=== PATIENT | female | born 1955 | race Caucasian/White ===

== ENCOUNTER 2019-03-05 05:54 | Day surgery (SDC) | payer OTHER ==
--- NOTE | 2019-02-25 13:31 | PREOPHP ---
DATE OF ADMISSION: 02/26/2019 HISTORY OF PRESENT ILLNESS: This 63-year-old patient is admitted for elective cataract surgery of the left eye. The patient has had a decreased vision for the past 3 years. 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 SYSTEMIC HISTORY: Positive for stomach disorder, depression and sleep apnea. CURRENT MEDICATIONS: Include: 1. Ambien. 2. Omeprazole. 3. Metoprolol. ALLERGIES: THERE ARE NO KNOWN ALLERGIES. PHYSICAL EXAMINATION: The visual acuity best corrected is 20/60 in the right eye and 20/50 in the left eye. Slit lamp examination reveals anterior cortical and nuclear sclerotic cataracts present in both eyes. There is evidence of a peripheral iridotomy in both eyes. Intraocular tension is 10 mmHg. Examination of the retina is within normal limits. DIAGNOSIS: Anterior cortical and nuclear sclerotic cataract, both eyes. PLAN: Cataract extraction with lens implant, left eye. The risks and alternatives to the surgery have been discussed with the patient and patient has opted to proceed with surgery in hopes of obtaining improved visual acuity leading to greater ability to perform activities of daily living. Dictated By: DAYANARA GUAMAN/MARIO Conf#: [id number] DID#: [id number] MTDD
--- NOTE | 2019-03-04 13:19 | PREOPHP ---
DATE OF ADMISSION: 02/26/2019 HISTORY OF PRESENT ILLNESS: This 63-year-old patient is admitted for elective cataract surgery of th e left eye. 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 SYSTEMIC HISTORY: Positive for systemic hypertension and depression as well as cholelithiasis. CURRENT MEDICATIONS: Include: 1. Fluticasone. 2. Claritin. 3. Ventolin. 4. Aspirin 81 mg (stopped 1 week prior to surgery). 5. Ketoconazole cream. 6. Ambien. 7. Venlafaxine. 8. Omeprazole. ALLERGIES: THERE ARE NO KNOWN ALLERGIES. PHYSICAL EXAMINATION: Visual acuity in both eyes is 20/70. Slit lamp examination reveals anterior c ortical and nuclear sclerotic cataracts present in both eyes. There is a laser peripheral iridotomy present bilaterally. Applanation tonometry is 13 mmHg. Examination of the retina is within normal l imits. DIAGNOSIS: Mixed cortical and nuclear sclerotic cataract, both eyes. PLAN: Cataract extraction with lens implant, left eye. The risks and alternatives have been discuss ed with the patient as well as the hope for improvement of visual acuity leading to greater ability t o perform activities of daily living. The patient understands this and agrees to proceed with luke ferguson Dictated By: DAYANARA GUAMAN/MARIO Conf#: [id number] DID#: [id number]
[2019-03-05] VITALS (9 sets, daily range): BP systolic 118–140; BP diastolic 60–78; PULSE 72–81; RESP 14–18; Ht 165.1 cm; Wt 67.0 kg
[~2019-03-05] VITALS: Ht 165.1 cm; Wt 67.0 kg
[~2019-03-05 05:54] MED LIST: SLEEPING PILL PO
[2019-03-05] MEDS ORDERED: DICLOFENAC 0.1% 2.5 ML OPH OPER SCH (06:30)
[2019-03-05] MEDS ORDERED: MOXIFLOXACIN 0.5% 3 ML OPH OPER SCH (06:30)
[2019-03-05] MEDS ORDERED: SOD CHLORIDE 0.9% 1,000 ML IV SCH (06:30)
[2019-03-05] MEDS ORDERED: TROPICAMIDE 1% 15 ML OPH OPER SCH (06:30)
[2019-03-05] MEDS ORDERED: CYCLOPENTOLATE/PHENYLEPH 2 ML OPH OPER SCH (06:30)
[2019-03-05] MEDS ORDERED: ZOLP10TA PO (07:10)
[2019-03-05] MEDS ORDERED: METO-448 PO (07:11)
[2019-03-05] MEDS ORDERED: VENL75CA89 PO (07:11)
[2019-03-05] MEDS ORDERED: ALBU18HF INHALATION (07:11)
[2019-03-05] MEDS ORDERED: FLUT1BLS INHALATION (07:12)
--- NOTE | 2019-03-05 07:33 | PREAC ---
Date/Time of Note Date/Time of Note DATE: 03/05/19 TIME: 07:32 Anesthesia Eval and Record Evaluation Time Pre-Procedure Interview DATE: 03/05/19 TIME: 07:32 Age 63 Sex female NPO: 8 hrs Preoperative diagnosis LEFT EYE CATARACT Planned procedure LEFT EYE CATARACT EXTRACTION W/ IOL Past Medical History Past Medical History: Includes Cardio: HTN Pulm: Sleep Apnea, Asthma GI: GERD Psych: Depression Surgery & Anesthesia Issues No known issue Meds Anticoagulation: No Beta Laura within 24 hr: No Reason Beta Laura not given: Pt. not on B-Laura Reported Medications Fluticasone/Vilanterol (Breo Ellipta 200-25 Mcg INH) 1 Each Blst.w.dev, 1 PUFF INHALATION DAILY, #1 INHALER 03/05/19 Albuterol Sulfate* (Ventolin HFA*) 18 Gm Hfa.aer.ad, 2 PUFF INHALATION Q4H, #1 INHALER 03/05/19 Venlafaxine Hcl* (Venlafaxine Hcl ER*) 75 Mg Cap.er.24h, 75 MG PO DAILY, CAP 03/05/19 Metoprolol Tartrate* (Lopressor*) 25 Mg Tab, 25 MG PO BID, #60 TAB 03/05/19 Zolpidem Tartrate* (Ambien*) 10 Mg Tablet, 10 MG PO QHS PRN for INSOMNIA, TAB 03/05/19 Discontinued Reported Medications [Sleeping Pill] No Conflict Check, PO 07/26/16 Current Medications Cyclopentolate/ Phenylephrine (Cyclomydril Oph 2 ml) 1 drop Q5 MIN X 3 OPER Last administered on 03/05/19at 06:44; Admin Dose 1 DROP; Start 03/05/19 at 06:30; Stop 03/05/19 at 08:00 Meds reviewed: Yes Allergies Coded Allergies: No Known Allergy (Unverified , 03/05/19) Allergies Reviewed: Yes Labs/Studies Labs Reviewed: Reviewed by anesthesiologist test: N/A Studies: ECG, CXR Pre-procedure Exam Last vitals Vital Signs Date Temp Pulse Resp B/P (MAP) Pulse Ox O2 O2 Flow FiO2 Time Delivery Rate 03/05/19 97.3 81 18 118/76 97 Room Air 06:54 (90) Airway: Adequate mouth opening Mallampati: Mallampati II Teeth: Normal Lung: Normal Heart: Normal ASA Physical Status ASA physical status: 2 Emergency: None Planned Anesthetic General/MAC: MAC Pre-operative Attestations Prior to commencing anesthesia and surgery, the patient was re-evaluated, there was verification of: *The patient's identity *The results of appropriate recent lab work and preoperative vital signs *The above evaluation not changing prior to induction *Anesthetic plan, risk benefits, alternative and complications discussed with patient/family; questions answered; patient/family understands, accepts and wishes to proceed. NANCIE ACEVEDO March 05, 2019 07:33
[2019-03-05] MEDS ORDERED: LABETALOL HCL 20MG INJ IV PRN (08:00)
[2019-03-05] MEDS ORDERED: hydrALAzine 20 MG INJ IV PRN (08:00)
[2019-03-05] MEDS ORDERED: PROPOFOL 100 ML ONE (08:02)
[2019-03-05] MEDS ORDERED: MIDAZOLAM 1 MG/ML 2 ML INJ ONE (08:02)
[2019-03-05] MEDS ORDERED: CEFAZOLIN 1 GM INJ ONE (08:25)
[2019-03-05] MEDS ORDERED: LIDOCAINE 4% (MPF) 5 ML INJ ONE (08:25)
[2019-03-05] MEDS ORDERED: DEXAMETHASONE 4 MG/ML 1 ML INJ ONE (08:25)
[2019-03-05] MEDS ORDERED: CARBACHOL 0.01% 1.5 ML OPH INJ ONE (08:25)
[2019-03-05] MEDS ORDERED: NA HYALURONATE/CHONDROITIN 0.5 ML SYG ONE (08:25)
--- NOTE | 2019-03-05 08:27 | SIPON ---
Date/Time of Note Date/Time of Note DATE: 03/05/19 TIME: 08:25 Operative Report Preoperative Diagnosis cortical and nuclear sclerotic cataract os Postoperative Diagnosis same Operation/Procedure Performed cataract extraction with lens implant os Surgeon dayanara ruiz lpn or medical assistant none Anesthesia: MAC Estimated blood loss: none Transfusion Required none Specimen none Grafts/Implants posterior chamber lens implant os Complications none DAYANARA RUIZ MD March 05, 2019 08:27
--- NOTE | 2019-03-05 08:34 | PAC ---
Date/Time of Note Date/Time of Note DATE: 03/05/19 TIME: 08:34 Post-Anesthesia Notes Post-Anesthesia Note Last documented vital signs Vital Signs Date Temp Pulse Resp B/P (MAP) Pulse Ox O2 O2 Flow FiO2 Time Delivery Rate 03/05/19 97.3 81 18 118/76 97 Room Air 06:54 (90) Activity: WNL Respiratory function: WNL Cardiovascular function: WNL Mental status: Baseline Pain reasonably controlled: Yes Hydration appropriate: Yes Nausea/Vomiting absent: Yes NANCIE ACEVEDO March 05, 2019 08:34
--- NOTE | 2019-03-05 08:53 | OPR ---
DATE OF OPERATION: 03/05/2019 PREOPERATIVE DIAGNOSIS: Nuclear sclerotic cataract, left eye. POSTOPERATIVE DIAGNOSIS: Nuclear sclerotic cataract, left eye. OPERATION PERFORMED: Cataract extraction with lens implant, left eye. SURGEON: Dayanara Rose MD CASEY SAW OPERATOR: Dr. Martinez. OPERATION: Phacoemulsification with posterior chamber intraocular lens implant, left eye. PROCEDURE: The patient was brought to the operating room and placed on the table with an IV in place and the patient attached to an conveyor monitor. Oxygen was given via face mask. After some intravenous sedation was administered, local anesthesia was given using Xylocaine 2% with epinephrine, mixed with Marcaine 0.5%. This was given in a lid block and retrobulbar injection. The p atient was then prepped and draped in the usual sterile manner. A wire lid speculum was inserted between the lids of the left eye. A Superblade was used to enter the anterior chamber at the corneoscleral limbus at the 10:30 o'clock position. A separate incision was made using a 3.0-mm keratome which entered the corneoscleral junction at the 12 o'clock position. Thr ough this 3-mm opening, an irrigating cystotome was introduced into the anterior chamber. The chamber was filled with Viscoat and an anterior capsulotomy was performed. Balanced salt solution was then u sed for hydrodissection of the lens. A phacoemulsification handpiece was then brought into the field and introduced into the anterior chamber. The lens nucleus was emulsified using a deep groove and cr acking the nucleus into quadrants. Following this, each quadrant was aspirated and emulsified at the pupillary margin. After this was completed, the irrigation/aspiration handpiece was brought to the field, introduced in to the posterior chamber, and the lens cortical material was removed. When this was completed, additi onal Viscoat was injected into the anterior and posterior chambers. The 3-mm opening had its internal lips enlarged, and then the posterior chamber intraocular lens dimas uring 23.5 diopters ([employer] Model LI61AO) was then injected into the posterior c hamber using the lens injector system. After the leading haptic was introduced into the capsular bag and the lens optic was present in the center of the eye, the injector was removed and the trailing mejia ptic was grasped with non-toothed forceps and introduced into the capsular fold superiorly. A [place] hook was then used to rotate the intraocular lens so that the lips were oriented in the horizontal m eridian. One 10-0 nylon suture was placed across the wound. Prior to tying, the irrigation/aspiration handpiece was reintroduced into the anterior chamber to rem ove the Viscoat. Miochol was instilled to constrict the pupil, and then the 10-0 nylon suture was tie d. The ends were cut short and then the knot was buried. Then, 0.5 mL of dexamethasone and 0.5 mL of Ancef were injected into the sub-Tenon space in the infer ior fornix. Ciloxan drops were then placed on the surface of the eye. The speculum was removed and a patch was applied. The patient then left the operating room in satisfactory condition. Dictated By: DAYANARA GUAMAN/MARIO Conf#: [id number] DID#: [id number]
== END 2019-03-05 09:25 | disposition home or self-care (01) ==
LOC: SDS 05:54
PROVIDERS: ATTEND Ophthalmology
DX: H25.12 Age-related nuclear cataract, left eye (principal); I10 Essential (primary) hypertension; J45.909 Unspecified asthma, uncomplicated
CPT/HCPCS: 66984; J0690; J1100; J2250; V2632; Z7512; Z7610

== ENCOUNTER 2019-04-30 06:20 | Day surgery (SDC) | payer OTHER ==
--- NOTE | 2019-04-29 12:42 | PREOPHP ---
DATE OF ADMISSION: 04/30/2019 HISTORY OF PRESENT ILLNESS: This is a 63-year-old patient is admitted for elective cataract surgery of the right eye. The patient has had decreased vision in both eyes for 3 years and 2 months ago, un derwent cataract surgery in the left eye with excellent visual result. The patient denies prior hist ory of eye disease or injury other than diagnosis of an anatomic narrow angle glaucoma suspect for wh ich a peripheral iridotomy was performed in both eyes. The patient's systemic history is positive fo r systemic disorder, depression and sleep apnea. CURRENT MEDICATIONS: 1. Ambien. 2. Omeprazole. 3. Metoprolol. ALLERGIES: THERE ARE NO KNOWN ALLERGIES. PHYSICAL EXAMINATION: The visual acuity with best correction is 20/60 in the right eye and 20/30 in the left eye. Slit lamp examination reveals cortical anterior cortical and nuclear sclerotic catarac t in the right eye. The left eye has a posterior chamber intraocular lens in appropriate position. Applanation tonometry is 13 mmHg. Examination of the retina is within normal limits. DIAGNOSIS: Cortical and nuclear sclerotic cataract, right eye. PLAN: Cataract extraction with lens implant, right eye. The risks and alternatives to the surgery h ave been discussed with the patient as well as the hope for improvement of visual acuity leading to g reater ability to perform activities of daily living. The patient understands this and agrees to pro ceed with surgery. Dictated By: DAYANARA GUAMAN/MARIO Conf#: [id number] DID#: [id number]
[2019-04-29 17:25] VITALS: Ht 165.1 cm; Wt 63.6 kg
[~2019-04-30] VITALS: Ht 165.1 cm; Wt 63.6 kg
[2019-04-30] VITALS (8 sets, daily range): BP systolic 125–148; BP diastolic 65–84; PULSE 72–79; RESP 16–24
[~2019-04-30 06:20] MED LIST changes: +ALBU18HF INHALATION; +FLUT1BLS INHALATION; +METO-448 PO; -SLEEPING PILL PO; +VENL75CA89 PO; +ZOLP10TA PO
[2019-04-30] MEDS ORDERED: TROPICAMIDE 1% 15 ML OPH OPER SCH (07:00)
[2019-04-30] MEDS ORDERED: MOXIFLOXACIN 0.5% 3 ML OPH OPER SCH (07:00)
[2019-04-30] MEDS ORDERED: CYCLOPENTOLATE/PHENYLEPH 2 ML OPH OPER SCH (07:00)
[2019-04-30] MEDS ORDERED: DICLOFENAC 0.1% 2.5 ML OPH OPER SCH (07:00)
[2019-04-30] MEDS ORDERED: SOD CHLORIDE 0.9% 1,000 ML IV SCH (07:00)
[2019-04-30] MEDS ORDERED: PRED10TA PO (07:54)
--- NOTE | 2019-04-30 08:15 | PREAC ---
Date/Time of Note Date/Time of Note DATE: 04/30/19 TIME: 08:13 Anesthesia Eval and Record Evaluation Time Pre-Procedure Interview DATE: 04/30/19 TIME: 08:13 Age 63 Sex female NPO: 8 hrs Preoperative diagnosis right eye cataract Planned procedure right eye cataract extraction with lens implant Past Medical History Past Medical History: Includes Cardio: HTN Pulm: COPD GI: GERD Heme: Thrombocytopenia (107) Psych: Depression Surgery & Anesthesia Issues No known issue Meds Anticoagulation: No Beta Laura within 24 hr: Yes Reason Beta Laura not given: Bradycarida, Hypotension Reported Medications Prednisone* (Prednisone*) 10 Mg Tab, 30 MG PO DAILY, TAB 04/30/19 Venlafaxine Hcl* (Venlafaxine Hcl ER*) 75 Mg Cap.er.24h, 75 MG PO DAILY, CAP 03/05/19 Metoprolol Tartrate* (Lopressor*) 25 Mg Tab, 25 MG PO BID, #60 TAB 03/05/19 Zolpidem Tartrate* (Ambien*) 10 Mg Tablet, 10 MG PO QHS PRN for INSOMNIA, TAB 03/05/19 Discontinued Reported Medications Fluticasone/Vilanterol (Breo Ellipta 200-25 Mcg INH) 1 Each Blst.w.dev, 1 PUFF INHALATION DAILY, #1 INHALER 03/05/19 Albuterol Sulfate* (Ventolin HFA*) 18 Gm Hfa.aer.ad, 2 PUFF INHALATION Q4H, #1 INHALER 03/05/19 Current Medications Diclofenac Sodium (Voltaren 0.1%) 1 drop Q5 MIN X 3 OPER Last administered on 04/30/19at 07:28; Admin Dose 1 DROP; Start 04/30/19 at 07:00 Tropicamide (Mydriacyl 1%) 1 drop Q5 MIN X3 OPER Last administered on 04/30/19at 07:28; Admin Dose 1 DROP; Start 04/30/19 at 07:00 Moxifloxacin HCl (Vigamox) 1 drop Q5 MIN X 3 OPER Last administered on 04/30/19at 07:28; Admin Dose 1 DROP; Start 04/30/19 at 07:00 Cyclopentolate/ Phenylephrine (Cyclomydril Oph 2 ml) 1 drop Q5 MIN X 3 OPER Last administered on 04/30/19at 07:28; Admin Dose 1 DROP; Start 04/30/19 at 07:00 Sodium Chloride 1,000 ml @ 25 mls/hr Q24H IV Last administered on 04/30/19at 07:28; Admin Dose 25 MLS/HR; Start 04/30/19 at 07:00 Meds reviewed: Yes Allergies Coded Allergies: No Known Allergy (Unverified , 04/30/19) Allergies Reviewed: Yes Labs/Studies Labs Reviewed: Reviewed by anesthesiologist test: N/A Studies: ECG, CXR Pre-procedure Exam Last vitals Vital Signs Date Temp Pulse Resp B/P (MAP) Pulse Ox O2 O2 Flow FiO2 Time Delivery Rate 04/30/19 97.2 76 16 126/74 100 Room Air 07:20 (91) Airway: Adequate mouth opening, Adequate thyromental dist Mallampati: Mallampati II Teeth: Normal Lung: Normal Heart: Normal ASA Physical Status ASA physical status: 2 Emergency: None Planned Anesthetic General/MAC: Mask Planned Pain Management Parenteral pain med, Local by surgeon Pre-operative Attestations Prior to commencing anesthesia and surgery, the patient was re-evaluated, there was verification of: *The patient's identity *The results of appropriate recent lab work and preoperative vital signs *The above evaluation not changing prior to induction *Anesthetic plan, risk benefits, alternative and complications discussed with patient/family; questions answered; patient/family understands, accepts and wishes to proceed. Photostatic Copy Maker used KENYETTA GALDAMEZ MD Apr 30, 2019 08:15
[2019-04-30] MEDS ORDERED: LIDOCAINE 4% (MPF) 5 ML INJ ONE (08:17)
[2019-04-30] MEDS ORDERED: DEXAMETHASONE 4 MG/ML 1 ML INJ ONE (08:17)
[2019-04-30] MEDS ORDERED: CEFAZOLIN 1 GM INJ ONE (08:17)
[2019-04-30] MEDS ORDERED: CARBACHOL 0.01% 1.5 ML OPH INJ ONE (08:17)
[2019-04-30] MEDS ORDERED: NA HYALURONATE/CHONDROITIN 0.5 ML SYG ONE (08:17)
[2019-04-30] MEDS ORDERED: MEPERIDINE 25 MG INJ IV PRN (08:30)
[2019-04-30] MEDS ORDERED: ONDANSETRON 4 MG INJ IV PRN (08:30)
[2019-04-30] MEDS ORDERED: HYDROmorphONE 1 MG/5 ML IV SYRINGE IV PRN ×3 (08:30)
[2019-04-30] MEDS ORDERED: PROCHLORPERAZINE 10 MG INJ IV PRN (08:30)
[2019-04-30] MEDS ORDERED: DIPHENHYDRAMINE 50 MG INJ IV PRN (08:30)
[2019-04-30] MEDS ORDERED: OXYCODONE/ACETAMINOPHEN (5/325) TAB PO PRN (08:30)
[2019-04-30] MEDS ORDERED: FENTAnyl 50 MCG/ML VIAL IV PRN (08:30)
[2019-04-30] MEDS ORDERED: LIDOCAINE 2% (SDV) 5 ML INJ ONE (08:34)
[2019-04-30] MEDS ORDERED: PROPOFOL 20 ML ONE (08:34)
[2019-04-30] MEDS ORDERED: FENTAnyl 50 MCG/ML VIAL ONE (08:35)
[2019-04-30] MEDS ORDERED: MIDAZOLAM 1 MG/ML 2 ML INJ ONE (08:35)
--- NOTE | 2019-04-30 09:20 | SIPON ---
Date/Time of Note Date/Time of Note DATE: 04/30/19 TIME: 09:18 Operative Report Preoperative Diagnosis cortical & nuclear sclerotic cataract od Postoperative Diagnosis same Operation/Procedure Performed cataract extraction with lens implant od Surgeon dayanara ruiz clinical nursing assistant none Anesthesia: MAC Estimated blood loss: none Transfusion Required none Specimen none Grafts/Implants posterior chamber lens implant Complications none DAYANARA RUIZ MD Apr 30, 2019 09:20
--- NOTE | 2019-04-30 09:22 | PAC ---
Date/Time of Note Date/Time of Note DATE: 04/30/19 TIME: 09:22 Post-Anesthesia Notes Post-Anesthesia Note Last documented vital signs Vital Signs Date Temp Pulse Resp B/P (MAP) Pulse Ox O2 O2 Flow FiO2 Time Delivery Rate 04/30/19 97.2 76 16 126/74 100 Room Air 07:20 (91) Activity: WNL Respiratory function: WNL Cardiovascular function: WNL Mental status: Baseline Pain reasonably controlled: Yes Hydration appropriate: Yes Nausea/Vomiting absent: Yes Comments BP: 140/71 HR: 74 RR: 15 T: 99 SaO2: 99% KENYETTA GALDAMEZ MD Apr 30, 2019 09:22
--- NOTE | 2019-04-30 09:30 | OPR ---
DATE OF OPERATION: 04/30/2019 PREOPERATIVE DIAGNOSIS: Anterior cortical and nuclear sclerotic cataract, right eye. POSTOPERATIVE DIAGNOSIS: Anterior cortical and nuclear sclerotic cataract, right eye. OPERATION PERFORMED: Cataract extraction with lens implant, right eye. SURGEON: Dayanara Rose MD ANESTHESIA: Local standby. ANESTHESIOLOGIST: Dr. Gotti. PROCEDURE: The patient was brought to the operating room and placed on the table with an IV in place and the patient attached to an professor of forestry. Oxygen was given via face mask. After some intravenous sedation was administered, local anesthesia was given using Xylocaine 2% with epinephrine, mixed with Marcaine 0.5%. This was given in a lid block and retrobulbar injection. The patient was then prepped and draped in the usual sterile manner. A wire lid speculum was inserted between the lids of the right eye. A Superblade was used to enter t he anterior chamber at the corneoscleral limbus at the 10:30 o'clock position. A separate incision w as made using a 3.0-mm keratome which entered the corneoscleral junction at the 12 o'clock position. Through this 3-mm opening, an irrigating cystotome was introduced into the anterior chamber. The ch fallon was filled with Viscoat and an anterior capsulotomy was performed. Balanced salt solution was then used for hydrodissection of the lens. A phacoemulsification handpiece was then brought into the field and introduced into the anterior chamber. The lens nucleus was emulsified using a deep groove and cracking the nucleus into quadrants. Following this, each quadrant was aspirated and emulsified at the pupillary margin. After this was completed, the irrigation/aspiration handpiece was brought to the field, introduced in to the posterior chamber, and the lens cortical material was removed. When this was completed, addit ional Viscoat was injected into the anterior and posterior chambers. The 3-mm opening had its internal lips enlarged, and then the posterior chamber intraocular lens dimas uring 23.0 diopters ([employer] Model LI61AO)) was then injected into the posterior chamber using the lens injector system. After the leading haptic was introduced into the capsular bag and the lens optic was present in the center of the eye, the injector was removed and the trailing h aptic was grasped with non-toothed forceps and introduced into the capsular fold superiorly. A [place] ey hook was then used to rotate the intraocular lens so that the lips were oriented in the horizontal meridian. One 10-0 nylon suture was placed across the wound. Prior to tying, the irrigation/aspiration handpiece was reintroduced into the anterior chamber to rem ove the Viscoat. Miochol was instilled to constrict the pupil, and then the 10-0 nylon suture was ti ed. The ends were cut short and then the knot was buried. Then, 0.5 mL of dexamethasone and 0.5 mL of Ancef were injected into the sub-Tenon space in the infer ior fornix. Ciloxan drops were then placed on the surface of the eye. The speculum was removed and a patch was applied. The patient then left the operating room in satisfactory condition. Dictated By: DAYANARA GUAMAN/MARIO Conf#: [id number] DID#: [id number]
== END 2019-04-30 10:06 | disposition home or self-care (01) ==
LOC: SDS 06:20
PROVIDERS: ATTEND Ophthalmology
DX: H25.11 Age-related nuclear cataract, right eye (principal)
CPT/HCPCS: 66984; J0690; J1100; J2250; J2405; J3010; V2632; Z7512; Z7610